=== PATIENT | female | born 1980 | race Caucasian/White ===

== ENCOUNTER 2017-12-29 21:51 | Inpatient (IN) | payer MEDICAID ==
[~2017-12-29] VITALS: Ht 162.6 cm; Wt 61.2 kg
[~2017-12-29 21:51] MED LIST: CLON0.5T PO; QUET25TA PO
[2017-12-30] MEDS ORDERED: HALOPERIDOL 5 MG TABLET PO PRN (01:30)
[2017-12-30] MEDS: LORazepam 2 MG TABLET PO PRN ×2 (09:21→16:24)
[2017-12-30 16:28] VITALS: BP 121/87
[2017-12-31 06:29] VITALS: BP 105/62
[2017-12-31] MEDS: PALIPERIDONE 3 MG ER TABLET PO SCH ×2 (08:48→17:21)
[2017-12-31] MEDS: LORazepam 2 MG TABLET PO PRN ×2 (08:48→17:22)
[2017-12-31 09:16] VITALS: BP 100/66
[2017-12-31] MEDS ORDERED: IBUPROFEN 400 MG TABLET PO PRN (14:15)
[2017-12-31] MEDS ORDERED: ACETAMINOPHEN 325 MG TABLET PO PRN (14:15)
[2017-12-31 16:37] VITALS: BP 102/62
[2018-01-01 06:17] VITALS: BP 115/63
[2018-01-01 08:20] LABS: HEMOGLOBIN A1C 4.7 % (4.5-6.2)
[2018-01-01 08:33] LABS: CHOL/HDL RATIO 3.2 (3.9-5.7)
[2018-01-01 08:34] LABS: THYROID STIMULATING HORMONE 0.92 uIU/mL (0.36-3.74)
[2018-01-01] MEDS: PALIPERIDONE 3 MG ER TABLET PO SCH ×2 (09:09→16:40)
[2018-01-01 09:10] VITALS: BP 96/72
[2018-01-01] MEDS: LORazepam 2 MG TABLET PO PRN ×2 (09:10→16:39)
[2018-01-01 16:31] VITALS: BP 108/60
[2018-01-02 06:53] VITALS: BP 106/65
[2018-01-02 08:25] VITALS: BP 107/64
[2018-01-02 08:41] VITALS: BP 107/64
[2018-01-02] MEDS: PALIPERIDONE 3 MG ER TABLET PO SCH (08:56)
[2018-01-02] MEDS ORDERED: PALI6 PO (14:49)
[2018-01-02 16:44] VITALS: BP 112/66
[2018-01-02] MEDS: PALIPERIDONE 6 MG ER TABLET PO SCH (17:26)
[2018-01-02] MEDS: LORazepam 2 MG TABLET PO PRN (19:42)
[2018-01-02] MEDS: ZOLPIDEM TARTRATE 10 MG TABLET PO PRN (21:21)
[2018-01-03 06:00] VITALS: BP 115/68
[2018-01-03 08:29] VITALS: BP 107/53
[2018-01-03] MEDS: LORazepam 2 MG TABLET PO PRN ×2 (09:12→17:22)
[2018-01-03] MEDS: PALIPERIDONE 6 MG ER TABLET PO SCH ×2 (09:17→17:09)
[2018-01-03 16:30] VITALS: BP 106/68
[2018-01-03] MEDS: ZOLPIDEM TARTRATE 10 MG TABLET PO PRN (21:10)
[2018-01-04] MEDS: PALIPERIDONE 6 MG ER TABLET PO SCH (08:32)
[2018-01-04 08:33] VITALS: BP 113/66
[2018-01-04] MEDS: LORazepam 2 MG TABLET PO PRN (08:45)
[2018-01-04] MEDS ORDERED: PALIPERIDONE PALMITATE 234 MG/1.5 ML SYRINGE IM SCH (09:00)
[2018-01-04] MEDS ORDERED: PALI234D IM (09:07)
[2018-01-04] MEDS ORDERED: PALI6 PO (09:07)
== END 2018-01-04 10:15 | disposition home or self-care (01) | DRG 753 ==
LOC: EMS 21:53 → B3A 12-30 14:36
PROVIDERS: ADMIT Psychiatry & Neurology Psychiatry; ATTEND Psychiatry & Neurology Psychiatry
DX: F31.2 Bipolar disorder, current episode manic severe with psychotic features (principal); R45.850 Homicidal ideations; R45.851 Suicidal ideations; F17.210 Nicotine dependence, cigarettes, uncomplicated; F43.10 Post-traumatic stress disorder, unspecified; G47.00 Insomnia, unspecified; Z91.19 Patient's noncompliance with other medical treatment and regimen
CPT/HCPCS: 83036; 84443; 87081

== ENCOUNTER 2018-10-01 10:32 | Inpatient (IN) | payer MEDICAID ==
[~2018-10-01] VITALS: Ht 160 cm; Wt 58.8 kg
[~2018-10-01 10:32] MED LIST changes: -CLON0.5T PO; +PALI234D IM; +PALI6 PO; -QUET25TA PO
[2018-10-01] MEDS ORDERED: HALOPERIDOL 5 MG TABLET PO PRN (13:45)
[2018-10-01] MEDS ORDERED: ZOLPIDEM TARTRATE 10 MG TABLET PO PRN (13:45)
[2018-10-02] MEDS ORDERED: HALOPERIDOL LACTATE 5 MG/ML VIAL ONE (14:50)
[2018-10-02] MEDS ORDERED: DiphenhydrAMINE HCL 50 MG/ML VIAL ONE (14:50)
[2018-10-02] MEDS ORDERED: LORazepam 2 MG/ML VIAL ONE (14:50)
[2018-10-02] MEDS ORDERED: DiphenhydrAMINE HCL 50 MG/ML VIAL IM ONE (15:00)
[2018-10-02] MEDS ORDERED: LORazepam 2 MG/ML VIAL IM ONE (15:00)
[2018-10-02] MEDS ORDERED: HALOPERIDOL LACTATE 5 MG/ML VIAL IM ONE (15:00)
[2018-10-02 16:09] VITALS: BP 109/60
[2018-10-03 06:24] VITALS: BP 103/69
[2018-10-03] MEDS: PALIPERIDONE 6 MG ER TABLET PO SCH ×2 (09:45→21:00)
[2018-10-03] MEDS: LORazepam 2 MG TABLET PO PRN (10:12)
[2018-10-03 16:27] VITALS: BP 133/72
[2018-10-04 08:14] VITALS: BP 108/73
[2018-10-04] MEDS: PALIPERIDONE 6 MG ER TABLET PO SCH ×2 (08:54→20:53)
[2018-10-04] MEDS ORDERED: ACETAMINOPHEN 325 MG TABLET PO PRN (09:15)
[2018-10-04] MEDS ORDERED: BACITRACIN 28.4 GM OINTMENT TP PRN (09:15)
[2018-10-04] MEDS ORDERED: ALBUTEROL SULFATE HFA 90 MCG/PUFF 8 GM INHALER IH PRN (09:15)
[2018-10-04] MEDS ORDERED: BENZOCAINE/MENTHOL LOZENGE MM PRN (09:15)
[2018-10-04] MEDS ORDERED: PETROLATUM,WHITE 71 GM JELLY TP PRN (09:15)
[2018-10-04] MEDS ORDERED: MAGNESIUM HYDROXIDE SUSPENSION 30 ML UDCUP PO PRN (09:15)
[2018-10-04] MEDS ORDERED: LOPERAMIDE HCL 2 MG CAPSULE PO PRN (09:15)
[2018-10-04] MEDS ORDERED: ONDANSETRON HCL 4 MG TABLET PO PRN (09:15)
[2018-10-04] MEDS ORDERED: CloNIDine HCL 0.1 MG TABLET PO PRN (09:15)
[2018-10-04] MEDS ORDERED: IBUPROFEN 600 MG TABLET PO PRN (09:15)
[2018-10-04] MEDS ORDERED: MAG HYDROX/AL HYDROX/SIMETH ES 30 ML SUSPENSION UDCUP PO PRN (09:15)
[2018-10-04] MEDS: LORazepam 2 MG TABLET PO PRN (10:13)
[2018-10-04 17:37] VITALS: BP 139/95
[2018-10-05 05:44] VITALS: BP 122/86
[2018-10-05 08:15] VITALS: BP 118/78
[2018-10-05] MEDS: OMEPRAZOLE 20 MG CAPSULE PO SCH (09:00)
[2018-10-05] MEDS: PALIPERIDONE 6 MG ER TABLET PO SCH ×2 (09:00→20:41)
[2018-10-05] MEDS: DOCUSATE SODIUM 100 MG CAPSULE PO SCH (09:00)
[2018-10-05] MEDS: LORazepam 2 MG TABLET PO PRN (09:17)
[2018-10-05 16:34] VITALS: BP 124/94
[2018-10-06 02:15] VITALS: BP 140/89
[2018-10-06] MEDS: LORazepam 2 MG TABLET PO PRN (06:22)
[2018-10-06] MEDS: DOCUSATE SODIUM 100 MG CAPSULE PO SCH (09:00)
[2018-10-06] MEDS: PALIPERIDONE 6 MG ER TABLET PO SCH ×2 (09:00→20:33)
[2018-10-06] MEDS: OMEPRAZOLE 20 MG CAPSULE PO SCH (09:00)
[2018-10-07 01:48] VITALS: BP 110/74
[2018-10-07 08:27] VITALS: BP 106/74
[2018-10-07] MEDS: OMEPRAZOLE 20 MG CAPSULE PO SCH (09:20)
[2018-10-07] MEDS: DOCUSATE SODIUM 100 MG CAPSULE PO SCH (09:20)
[2018-10-07] MEDS: PALIPERIDONE 6 MG ER TABLET PO SCH ×2 (09:20→20:29)
[2018-10-07] MEDS: LORazepam 2 MG TABLET PO PRN (09:24)
[2018-10-07 16:18] VITALS: BP 105/60
[2018-10-08 06:40] VITALS: BP 100/60
[2018-10-08 08:19] VITALS: BP 100/65
[2018-10-08] MEDS: DOCUSATE SODIUM 100 MG CAPSULE PO SCH (09:00)
[2018-10-08] MEDS: OMEPRAZOLE 20 MG CAPSULE PO SCH (09:00)
[2018-10-08] MEDS: PALIPERIDONE 6 MG ER TABLET PO SCH ×2 (09:00→20:13)
[2018-10-08] MEDS: LORazepam 2 MG TABLET PO PRN (16:43)
[2018-10-08 17:28] VITALS: BP 115/78
[2018-10-09 06:11] VITALS: BP 108/71
[2018-10-09] MEDS ORDERED: DOCUSATE SODIUM 100 MG CAPSULE PO PRN (08:15)
[2018-10-09] MEDS ORDERED: OMEPRAZOLE 20 MG CAPSULE PO PRN (08:15)
[2018-10-09] MEDS: PALIPERIDONE 6 MG ER TABLET PO SCH ×2 (09:00→20:34)
[2018-10-09] MEDS: LORazepam 2 MG TABLET PO PRN (10:26)
[2018-10-09 12:18] VITALS: BP 105/60
[2018-10-09 16:20] VITALS: BP 115/69
[2018-10-10 06:30] VITALS: BP 114/66
[2018-10-10] MEDS: PALIPERIDONE 6 MG ER TABLET PO SCH ×2 (08:56→20:48)
[2018-10-10 09:08] VITALS: BP 107/69
[2018-10-10 16:17] VITALS: BP 118/68
[2018-10-10] MEDS: LORazepam 2 MG TABLET PO PRN (16:17)
[2018-10-11] MEDS: LORazepam 2 MG TABLET PO PRN (06:51)
[2018-10-11 08:23] VITALS: BP 126/80
[2018-10-11] MEDS: PALIPERIDONE 6 MG ER TABLET PO SCH (09:00)
[2018-10-11] MEDS ORDERED: PALI6 PO (10:49)
== END 2018-10-11 20:38 | disposition home or self-care (01) | DRG 753 ==
LOC: EMS 10:33 → B3A 10-02 14:20
DX: F31.2 Bipolar disorder, current episode manic severe with psychotic features (principal); F17.210 Nicotine dependence, cigarettes, uncomplicated; F41.9 Anxiety disorder, unspecified; F43.10 Post-traumatic stress disorder, unspecified; G47.00 Insomnia, unspecified; K59.00 Constipation, unspecified; Z59.0 Homelessness; Z79.899 Other long term (current) drug therapy
CPT/HCPCS: 96372; J1200; J1630; J2060